=== PATIENT | female | born 1990 | race African-American/Black ===

== ENCOUNTER 2020-05-25 17:38 | Emergency (ER) | payer MEDICAID, SELFPAY ==
[2020-05-25 17:47] VITALS: BP 113/99; PULSE 86; RESP 14; TEMP 36.6; O2SAT 99
--- NOTE | 2020-05-25 18:00 | ED.SKABFB ---
HPI - Skin/Abscess/Foreign Bdy General Chief complaint: Skin/Abscess/Foreign Body Stated complaint: patches of skin with rashes Time Seen by Provider: 05/25/20 17:55 Source: patient and RN notes reviewed Mode of arrival: ambulatory Limitations: no limitations History of Present Illness HPI narrative: Patient presents today complaining of a severely pruritic rash on her abdomen and right buttocks in 05/06/2020. She believes she had a few insect bites, but these may have healed, but the rash persists. She has tried oral Benadryl without relief. Reports the rash continues to worsen. MD complaint: rash Related Data Allergies Allergy/AdvReac Type Severity Reaction Status Date / Time amoxicillin [From Augmentin] Allergy Rash Verified 05/25/20 17:55 clavulanic acid Allergy Rash Verified 05/25/20 17:55 [From Augmentin] Review of Systems Review of Systems: Narrative: CONSTITUTIONAL: Denies body aches, fever, chills, or sweats. EYES: Denies visual changes, redness, or discharge. ENT: Denies rhinorrhea, congestion, sore throat, or otalgia. CARDIOVASCULAR: Denies chest pain, palpitations, or edema. RESPIRATORY: Denies cough or dyspnea. GASTROINTESTINAL: Denies abdominal pain, nausea, vomiting, or diarrhea. GENITOURINARY: Denies dysuria or hematuria. SKIN: Rash to abdomen and right buttock MUSCULOSKELETAL: Denies back pain, joint pain, or myalgia. NEUROLOGIC: Denies headache, numbness, tingling, or weakness. PSYCH: Denies depression or anxiety. PMFSH Comments At time of signature, I have reviewed and agree with nursing past medical, surgical, social and family history unless otherwise noted. Please see nursing chart for further information. There is no relevant family history pertinent to the presenting complaint Exam Narrative: Exam Narrative: GENERAL: Well-appearing, well-nourished, and in no acute distress. HEAD: Normocephalic, atraumatic. EYES: EOMI. No redness or drainage. Conjunctivae normal. ENT: Mucous membranes pink and moist. NECK: Normal AROM. CHEST: No respiratory distress. EXTREMITIES: Normal range of motion. No edema. SKIN: Warm, dry. Capillary refill normal. Normal skin turgor. Large patch of mildly erythematous maculopapular rash, covering most of the surface area of the right buttock. There is a small scabbed lesion in the center. No induration or fluctuance noted. No tenderness to palpation. Large patch of mildly erythematous macular papular rash to the bilateral lower abdomen. There is some small areas of hyperpigmentation, likely related to healing insect bites to the left upper leg, left lower abdomen. No induration or fluctuance noted in these areas as well. NEURO: No focal deficits. Alert and oriented x3. Gait steady. PSYCH: Normal affect. No signs of depression or anxiety. Course Vital Signs Vital signs: Vital Signs Temperature 97.9 F 05/25/20 17:47 Pulse Rate 86 05/25/20 17:47 Respiratory Rate 14 05/25/20 17:47 Blood Pressure 113/99 H 05/25/20 17:47 Pulse Oximetry 99 05/25/20 17:47 Temperature 97.9 F 05/25/20 17:47 Pulse Rate 86 05/25/20 17:47 Respiratory Rate 14 05/25/20 17:47 Blood Pressure 113/99 H 05/25/20 17:47 Pulse Oximetry 99 05/25/20 17:47 Reviewed. Pt has been instructed to follow up with her PCP regarding her elevated blood pressure today. MDM - Skin/Abscess/Foreign Bdy Differential Diagnosis Differential diagnosis: Likely abscess of skin or subcutaneous tissue, urticaria, cellulitis, eczema, insect bites, impetigo and contact dermatitis Critical Care Time Critical Care Time Critical Care Time: No Discharge Plan Discharge Clinical Impression: Rash and nonspecific skin eruption Patient Disposition: Home, Self-Care Condition: Stable Instructions: Antibiotic Form, Dermatitis (ED) Additional Instructions: The cause of your rash is unclear. Please take the prednisone and Keflex as directed. Start the prednisone in the mo
== END 2020-05-25 18:09 | disposition home or self-care (01) ==
PROVIDERS: Emergency Provider Nurse Practitioner
DX: R21 Rash and other nonspecific skin eruption (principal)
CPT/HCPCS: 99213; G0463